=== PATIENT | male | born 1980 | race Caucasian/White ===

== ENCOUNTER 2019-10-28 21:23 | Emergency (ER) | payer BC, SELFPAY ==
--- NOTE | ~2019-10-28 | CT_ITS ---
EXAMINATION: CT abdomen pelvis w con DATE: 10/28/2019 22:51 INDICATION: Right lower quadrant abdominal pain TECHNIQUE: Computed tomography (CT) of the abdomen and pelvis was performed with 100 mL Omnipaque-350 intravenous contrast. Automated exposure control and iterative reconstruction technique were employe d. The dose-length product was 1659.13 mGy-cm. COMPARISON: None FINDINGS: Mild discoid atelectasis at the lingula. Arch size is normal. No pericardial or pleural effusion. Renee er, spleen, pancreas, bilateral adrenal glands and kidneys are normal. 2.3 x 1.6 cm peripherally calc ified gallstone at the neck of the gallbladder which is distended to 4.3 cm maximal diameter. No evid ent gallbladder wall thickening or pericholecystic inflammatory change to more specifically suggest a cute cholecystitis. Bowels including the appendix are normal. Bladder is normal. Small fat-containing left inguinal hernia. No free intraperitoneal gas or fluid. No pathologically enlarged abdominal or pelvic lymphadenopathy. Mild lumbar levocurvature. IMPRESSION: 1. Gallstone at the neck of the mildly distended gallbladder. No wall thickening or pericholecystic i nflammatory stranding to more specifically suggest acute cholecystitis. Correlate for Razo and if i ndicated could consider HIDA scan for further evaluation. 2. Normal appendix. No other acute intra-abdominal/pelvic process. Reviewed, dictated and finalized at location [facility] IMPRESSION: 1. Gallstone at the neck of the mildly distended gallbladder. No wall thickenin g or pericholecystic inflammatory stranding to more specifically suggest acute cholecystitis. Correlate for Razo and if indicated could consider HIDA scan f or further evaluation. 2. Normal appendix. No other acute intra-abdominal/pelvic process.
[2019-10-28 21:27] VITALS: BP 158/91; PULSE 70; RESP 18; TEMP 36.4; O2SAT 100
--- NOTE | 2019-10-28 21:41 | ED.ABDPAIN ---
HPI - Abdominal Pain General Chief Complaint: Abdominal Pain Stated Complaint: abd pain Time Seen by Provider: 10/28/19 21:30 Source: patient and RN notes reviewed Mode of arrival: ambulatory Limitations: no limitations History of Present Illness HPI narrative: Pt is a 39 y/o male who presents to the ED with c/o RLQ pain starting roughly 2.5 hours ago. He describes his pain as burning, and notes that it feels as though he needs to pass gas. Pt states that his pain doesn't radiate anywhere. He notes that he has taken Tylenol, Gas-X, and TUMS for his symptoms, but denies having any relief. Pt reports sweats accompanying his pain, but denies any fever, chills, diarrhea, nausea, vomiting, dysuria, or chest pain. He denies any Hx of appendectomy. MD elicited complaint: abdominal pain Onset (ago): hour(s) (2.5) Location: RLQ Quality: burning Associated symptoms: other (sweats) Treatments prior to arrival: antacids (Gas-X; TUMS) and other (Tylenol) Related Data Allergies Allergy/AdvReac Type Severity Reaction Status Date / Time No Known Allergies Allergy Verified 10/28/19 21:37 Review of Systems Review of Systems: All systems reviewed & are unremarkable except as noted in HPI and below Constitutional: Constitutional: Denies chills and Denies fever(s) Cardiovascular: Cardiovascular: Denies chest pain and Reports diaphoresis Gastrointestinal: Gastrointestinal: Reports abdominal pain (RLQ pain), Denies diarrhea, Denies nausea and Denies vomiting Genitourinary: Genitourinary: Denies dysuria PMFSH Past Medical History Medical History Psoriasis Surgical History Surgical History No significant past surgical history Social History Social History Alcohol intake: current Alcohol use details: occasional drinker Exam Narrative: Exam Narrative: GENERAL: Well-appearing, well-nourished, and in no acute distress. HEAD: Normocephalic, atraumatic. ENT: Mucous membranes moist. CHEST: Clear to auscultation. No respiratory distress. HEART: Regular rate and rhythm. Normal peripheral pulses. ABDOMEN: Soft, mild right mid abdominal discomfort without guarding, nondistended, normal active bowel sounds. EXTREMITIES: Normal range of motion. No edema. SKIN: Warm, dry, psoriatic plaques scattered across the body most notable along the hairline in the upper back.. NEURO: Alert and oriented x3. Course Course Emergency Course: Informed of results. Patient feels much better at this time. Discussed that is a gallstone that she should follow-up with general surgery for. May be causing some of his discomfort. Vital Signs Vital signs: Vital Signs Temperature 97.6 F 10/28/19 21:27 Pulse Rate 70 10/28/19 21:27 Respiratory Rate 18 10/28/19 21:27 Blood Pressure 158/91 H 10/28/19 21:27 Pulse Oximetry 100 10/28/19 21:27 Temperature 97.6 F 10/28/19 21:27 Pulse Rate 68 10/28/19 23:10 Respiratory Rate 17 10/28/19 23:10 Blood Pressure 132/96 H 10/28/19 23:10 Pulse Oximetry 97 10/28/19 23:10 MDM - Abdominal Pain Lab Data Result diagrams: 10/28/19 21:56 10/28/19 21:56 Labs: Lab Results 10/28/19 10/28/19 10/28/19 Range/Units 21:56 21:56 21:56 WBC 9.2 (4.5-10.0) K/mm3 RBC 5.25 (4.6-6.20) M/mm3 Hgb 15.6 (14.0-18.0) g/dL Hct 45.6 (42.0-52.0) % MCV 86.9 (80-100) fl MCH 29.7 (26-34) pg MCHC 34.2 (32-36) g/dl RDW 12.7 (11.5-14.5) % Plt Count 370 (150-375) k/mm3 MPV 9.9 (7.4-10.4) fl Immature Gran % (Auto) 0.2 (0-0.5) % Neut % (Auto) 70.6 (45.5-73.1) % Lymph % (Auto) 21.6 (18.3-44.2) % [place] % (Auto) 6.6 (2.6-8.5) % Eos % (Auto) 0.7 (0-4.4) % Baso % (Auto) 0.3 (0.2-1.2) % Lymph # (Auto) 1.99 (0.9-3.2) K/mm3 [place] # (Auto) 0.6 (0.1-0.6) K/mm3 E
[2019-10-28] MEDS: MORPHINE SULFATE 4 MG/ML INJ IV PUSH (21:51)
[2019-10-28] MEDS: SODIUM CHLORIDE 0.9% IV 1,000 ML 999 ML IV CONT (21:51)
[2019-10-28] MEDS: ONDANSETRON INJ 4 MG/2 ML VIAL IV PUSH (21:51)
[2019-10-28 22:02] LABS: Basophils Percent Auto 0.3 % (0.2-1.2); Eosinophils Absolute Auto 0.1 K/mm3 (0-0.3); Eosinophils Percent Auto 0.7 % (0-4.4); Hematocrit 45.6 % (42.0-52.0); Hemoglobin 15.6 g/dL (14.0-18.0); Immature Granulocyte Absolute 0.02 K/mm3 (0.00-0.031); Immature Granulocyte Percent A 0.2 % (0-0.5); Lymphocytes Absolute Auto 1.99 K/mm3 (0.9-3.2); Lymphocytes Percent Auto 21.6 % (18.3-44.2); Mean Corpuscular HGB Conc 34.2 g/dl (32-36); Mean Corpuscular Hemoglobin 29.7 pg (26-34); Mean Corpuscular Volume 86.9 fl (80-100); Mean Platelet Volume 9.9 fl (7.4-10.4); Monocytes Absolute Auto 0.6 K/mm3 (0.1-0.6); Monocytes Percent Auto 6.6 % (2.6-8.5); Neutrophils Absolute Auto 6.5 K/mm3 (1.3-6.7); Neutrophils Percent Auto 70.6 % (45.5-73.1); Platelet Count Result 370 k/mm3 (150-375); Red Blood Count 5.25 M/mm3 (4.6-6.20); Red Cell Distribution Width 12.7 % (11.5-14.5); White Blood Count 9.2 K/mm3 (4.5-10.0)
[2019-10-28 22:13] LABS: Blood Urea Nitrogen 9 mg/dL (9-20); Calcium 9.5 mg/dL (8.4-10.2); Carbon Dioxide 26 mmol/L (22-30); Chloride 104 mmol/L (98-107); Estimated Glomerular Filt Rate > 60; Glucose 108 mg/dL (75-110); Potassium 3.7 mmol/L (3.4-5.0); Sodium 143 mmol/L (137-145)
[2019-10-28 22:27] LABS: Add Urine Microscopic? YES; Appearance Urine Clear (Clear); Bacteria Urine Trace /hpf; Bilirubin Urine Negative (Negative); Blood Urine Negative (Negative); Calcium Oxalate Crystals Urine Present /hpf; Color Urine Yellow (Yellow); Glucose Urine UA Negative (Negative); Ketones Urine Negative (Negative); Leukocyte Esterase Ur Negative LEU/UL (Negative); Mucus Urine Few /lpf; Nitrate Urine Negative (Negative); Protein Urine 1+ mg/dL (Negative); RBC Urine 0-2 /hpf (0-2); Squamous Epithelial Cell Urine Rare /hpf (Few); WBC Urine 0-3 /hpf
[2019-10-28 22:28] LABS: Specific Grav Ur 1.032 (1.001-1.035)
[2019-10-28 23:10] VITALS: BP 132/96; PULSE 68; RESP 17; O2SAT 97
[2019-10-28 23:50] LABS: Alanine Aminotransferase 32 U/L (4-50); Albumin Level 4.6 g/dL (3.5-5.1); Alkaline Phosphatase 101 U/L (38-126); Aspartate Amino Transferase 37 U/L (17-59); Bilirubin,Total 0.4 mg/dL (0.2-1.3); Lipase 140 U/L (23-300)
[2019-10-29 00:25] VITALS: BP 138/94; PULSE 67; RESP 18; O2SAT 97
== END 2019-10-29 00:26 | disposition home or self-care (01) ==
PROVIDERS: Emergency Provider Emergency Medicine
DX: K80.20 Calculus of gallbladder without cholecystitis without obstruction (principal)
CPT/HCPCS: 36415; 74177; 80048; 80076; 81001; 83690; 85025; 96361; 96374; 96375; 99284; J2270; J2405; J7030; Q9967